=== PATIENT | male | born 1950 | race Caucasian/White ===

== ENCOUNTER 2019-05-15 10:06 | Emergency (ER) | payer MEDICARE, MEDICAID ==
--- NOTE | 2019-05-15 10:49 | ED ---
GI/ HPI - HPI Summary HPI Summary: 68 y/o male presented to [facility] with complaint of constipation and inability to urinate beginning 3-4 days ago. His last BM was 5 days. He is experiencing diffuse abdominal pain as well, rated 9/10 in severity. He has increased Percocet use since March 2019 following a pain medication change with a pelvis fracture. - History of Current Complaint Chief Complaint: EDAbdPain Time Seen by Provider: 05/15/19 10:08 Stated Complaint: LOWER ABD PAIN/UNABLE TO URINATE PER EMS Hx Obtained From: Patient Onset/Duration: Started Days Ago, Still Present Timing: Lasting Days Current Severity: Severe Pain Intensity: 9 Location of Pain: Diffuse Associated Signs and Symptoms: Positive: Constipation, Abdominal Pain, Other: - inability to urinate - Allergy/Home Medications Allergies/Adverse Reactions: Allergies Allergy/AdvReac Type Severity Reaction Status Date / Time No Known Allergies Allergy Verified 05/15/19 10:21 Home Medications: Home Medications Losartan TAB* [Cozaar TAB*] 50 mg PO DAILY 05/15/19 [History Confirmed 05/15/19] oxyCODONE/Acetamin 5/325 MG* [Percocet 5/325 TAB*] 1 tab PO Q8H PRN 05/15/19 [ History Confirmed 05/15/19] PMH/Surg Hx/FS Hx/Imm Hx Respiratory History: Reports: Hx Chronic Obstructive Pulmonary Disease (COPD) Musculoskeletal History: Reports: Hx Orthopedic Injury - Fx pelvis - Surgical History Surgical History: Yes Surgery Procedure, Year, and Place: 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 Infectious Disease History: No Infectious Disease History: Denies: History Other Infectious Disease, Traveled Outside the [place] in Last 30 Days - Family History Known Family History: Negative: Cardiac Disease, Hypertension - Social History Alcohol Use: Occasionally Alcohol Amount: beer Substance Use Type: Reports: Prescribed Substance Use Comment - 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 Skin: The skin is warm and dry, and skin color reflects adequate perfusion. HEENT: The head is normocephalic and atraumatic. The pupils are equal and reactive. The conjunctivae are clear and without drainage. Nares are patent and without drainage. Mouth reveals moist mucous membranes, and the throat is without erythema and exudate. The external ears are intact. The ear canals are patent and without drainage. The tympanic membranes are intact. Neck: The neck is supple with full range of motion and non-tender. There are no carotid bruits. There is no neck vein distension. Respiratory: Chest is non-tender. Lungs are clear to auscultation and breath sounds are symmetrical and equal. Cardiovascular: Heart is regular rate and rhythm. There is no murmur or rub auscultated. There is no peripheral edema and pulses are symmetrical and equal. Abdomen: The abdomen is soft and non-tender. There are normal bowel sounds heard in all four quadrants and there is no organomegaly palpated. There are 500cc urine present in bladder on bladder scan. Musculoskeletal: There is no back tenderness noted. Extremities are non-tender with full range of motion. There is good capillary refill. There is no peripheral edema or calf tenderness elicited. Neurological: Patient is alert and oriented to person, place and time. The patient has symmetrical motor strength in all four extremities. Cranial nerves are grossly intact. Deep tendon reflexes are symmetrical and equal in all four extremities. Psychiatric: The patient has an appropriate affect and does not exhibit any anxiety or depression. Triage Information Reviewed: Yes Vital Signs On Initial Exam: Initial Vitals Temp Pulse Resp BP Pulse Ox 99.3 F 72 20 184/106 97 05/15/19 10:19 05/15/19 10:19 05/15/19 10:19 05/15/19 10:19 05/15/19 10:19 Vital Signs Reviewed: Yes Procedures - Sedation Patient Received Moderate/Deep Sedation with Procedure: No Diagnostics - Vital Signs Vital Signs Temp Pulse Resp BP Pulse Ox 05/15/19 10:28 72 18 183/100 97 05/15/19 10:22 69 19 97 05/15/19 10:19 99.3 F 72 20 184/106 97 - Laboratory Lab Statement: Any lab studies that have been ordered have been reviewed, and results considered in the medical decision making process. - Radiology Abd XR Radiology Interpretation Completed By: Radiologist Summary of Radiographic Findings: IMPRESSION: NONSPECIFIC BOWEL GAS PATTERN. LARGE AMOUNT OF STOOL THROUGHOUT THE COLON. This report was reviewed by the ED physician. GIGU Course/Dx - Course Course Of Treatment: Mr. Carlson presented with a concern that he has not been able to urinate. He's also been constipated. He was nontoxic in appearance with stable vitals but tender in the suprapubic area. I used the bladder scanner and detected at least 500 cc of urine in his bladder. A Rodas catheter was placed and over 100 cc return. KUB did show some moderate constipation but not a remarkable amount in his suprapubic area. Urinalysis was unremarkable. I recommended relieve the Rodas in place temporarily and get him cleaned out with some mag citrate and then have him followed up. - Diagnoses Provider Diagnoses: Urinary retention, Constipation Discharge ED - Sign-Out/Discharge Documenting (check all that apply): Patient Departure - dc - Discharge Plan Condition: Stable Disposition: HOME Patient Education Materials: Urinary Retention in Men (ED) Referrals: Pee SANTOS,Margarito Chew [Primary Care Provider] - Sadiq Zuniga MD [Medical Doctor] - 3 Days Additional Instructions: Follow up with urology in 1-3 days. If you experience new or worsening symptoms please return to the ED. - Billing Disposition and Condition Condition: STABLE Disposition: Home - Attestation Statements Document Initiated by Jd: Yes Documenting Scribe: Zuleima Erazo Provider For Whom Jd is Documenting (Include Credential): Ankur Anderson MD Scribe Attestation: Zuleima Reynaga, scribed for Ankur Anderson MD on 05/15/19 at 1853. Scribe Documentation Reviewed: Yes Provider Attestation: The documentation as recorded by the Zuleima rose accurately reflects the service I personally performed and the decisions made by me, Ankur Anderson MD Status of Scradarsh Document: Viewed
[2019-05-15 11:12] LABS: Urine Appearance Clear; Urine Bilirubin Negative (Negative); Urine Blood Negative (Negative); Urine Color Yellow; Urine Glucose Negative (Negative); Urine Ketones Trace (Negative); Urine Nitrite Negative (Negative); Urine Protein Negative (Negative); Urine Urobilinogen Negative (Negative)
[2019-05-15] MEDS ORDERED: Magnesium CITRATE* 300 ML BTL PO ONE (11:41)
[2019-05-15 14:06] VITALS: BP 160/81
== END 2019-05-15 14:05 | disposition home or self-care (01) ==
LOC: ED 10:06
DX: K59.00 Constipation, unspecified (principal); R33.9 Retention of urine, unspecified; J44.9 Chronic obstructive pulmonary disease, unspecified; Z96.642 Presence of left artificial hip joint; Z87.891 Personal history of nicotine dependence
CPT/HCPCS: 51702; 74018; 81003; 99283; A9270-GY